=== PATIENT | male | born 1985 | race Hispanic/Latino ===

== ENCOUNTER 2017-11-11 22:29 | Observation (INO) | payer BC, OTHER ==
[2017-11-11 23:33] LABS: Absolute Lymphocytes (CBC) 2.6 K/uL (0.7-4.9); Absolute Monocytes 0.4 K/uL (0.1-1.3); Absolute Neutrophil 4.3 K/uL (1.8-8.0); Basophils % 0.6 % (0-1.3); Eosinophils % 2.2 % (0-4.4); Hematocrit 47.1 % (39.6-49.0); Lymphocytes % 34.2 % (15.3-44.8); MCH 30.5 pg (27.0-35.0); MCV 88.5 fL (80-100); MPV 8.2 fL (7.6-11.3); Monocytes % 5.4 % (3.3-12.3); RBC Red Blood Cell Count 5.33 M/uL (4.33-5.43)
[2017-11-11] MEDS ORDERED: ASPIRIN 81 MG CHEWABLE TABLET ONE (23:33)
[2017-11-11] MEDS ORDERED: NA CHLORIDE 0.9% 500 ML ONE (23:33)
[2017-11-11 23:36] LABS: Protime INR 1.03
[2017-11-11] MEDS ORDERED: NA CHLORIDE 0.9% 1,000 ML ONE (23:36)
[2017-11-11 23:56] LABS: Albumin 4.7 g/dL (3.2-5.5); Bilirubin Direct 0.1 mg/dL (0-0.2); Bilirubin Total 0.8 mg/dL (0.3-1.2); CKMB Creatine Kinase MB 1.2 ng/ml (0.3-4.0)
--- NOTE | 2017-11-12 01:27 | EDPHYS ---
Physician Documentation [facility] Name: Delmar Kathleen Age: 32 yrs Sex: Male : 1985 Arrival Date: 11/11/2017 Time: 22:30 Bed 20 Private MD: Rommel Berry V ED Physician Asher Tuttle HPI: 11/11 23:29 This 32 yrs old Male presents to ER via Ambulatory with complaints of Chest cem Pain, High Blood Pressure. 23:29 The patient or guardian reports chest pain that is located primarily in the substernal ecm area, anterior chest wall. The pain does not radiate. Associated signs and symptoms: Pertinent positives: palpitations. The chest pain is described as sharp. Duration: The patient or guardian reports multiple episodes, that wax and wane. Modifying factors: The symptoms are alleviated by remaining still, rest, the symptoms are aggravated by breathing, cough, deep breath. Severity of pain: At its worst the pain was moderate in the emergency department the pain is unchanged. The patient has not experienced similar symptoms in the past. Historical: - Allergies: 22:56 No Known Allergies; fc - Home Meds: 22:56 levothyroxine 137 mcg tab 1 tab once daily [Active]; omeprazole 40 mg Oral cpDR 1 cap fc as needed [Active]; - PMHx: 22:56 GERD; Hypothyroidism; Sleep Apnea; fc - PSHx: 22:56 None; fc - Immunization history:: Last tetanus immunization: up to date. - Social history:: Smoking status: Patient/guardian denies using tobacco, Patient uses alcohol, only on a social basis. - Ebola Screening: : Patient negative for fever greater than or equal to 101.5 degrees Fahrenheit, and additional compatible Ebola Virus Disease symptoms Patient denies exposure to infectious person Patient denies travel to an Ebola-affected area in the 21 days before illness onset. - Family history:: not pertinent. ROS: 23:29 Constitutional: Negative for fever, chills, and weight loss, Eyes: Negative for injury, cem pain, redness, and discharge, ENT: Negative for injury, pain, and discharge, Neck: Negative for injury, pain, and swelling, Abdomen/GI: Negative for abdominal pain, nausea, vomiting, diarrhea, and constipation, Back: Negative for injury and pain, : Negative for injury, bleeding, discharge, and swelling, MS/Extremity: Negative for injury and deformity, Skin: Negative for injury, rash, and discoloration, Neuro: Negative for headache, weakness, numbness, tingling, and seizure, Psych: Negative for depression, anxiety, suicide ideation, homicidal ideation, and hallucinations, Allergy/Immunology: Negative for hives, rash, and allergies, Endocrine: Negative for neck swelling, polydipsia, polyuria, polyphagia, and marked weight changes, Hematologic/Lymphatic: Negative for swollen nodes, abnormal bleeding, and unusual bruising. 23:29 Cardiovascular: Positive for chest pain. 23:29 Respiratory: Positive for pleurisy, shortness of breath. Exam: 23:29 Constitutional: This is a well developed, well nourished patient who is awake, alert, cem and in no acute distress. Head/Face: Normocephalic, atraumatic. Eyes: Pupils equal round and reactive to light, extra-ocular motions intact. Lids and lashes normal. Conjunctiva and sclera are non-icteric and not injected. Cornea within normal limits. Periorbital areas with no swelling, redness, or edema. ENT: Nares patent. No nasal discharge, no septal abnormalities noted. Tympanic membranes are normal and external auditory canals are clear. Oropharynx with no redness, swelling, or masses, exudates, or evidence of obstruction, uvula midline. Mucous membranes moist. Neck: Trachea midline, no thyromegaly or masses palpated, and no cervical lymphadenopathy. Supple, full range of motion without nuchal rigidity, or vertebral point tenderness. No Meningismus. Chest/axilla: Normal chest wall appearance and motion. Nontender with no deformity. No lesions are appreciated. Cardiovascular: Regular rate and rhythm with a normal S1 and S2. No gallops, murmurs, or rubs. Normal PMI, no JVD. No pulse deficits. Respiratory: Lungs have equal breath sounds bilaterally, clear to auscultation and percussion. No rales, rhonchi or wheezes noted. No increased work of breathing, no retractions or nasal flaring. Abdomen/GI: Soft, non-tender, with normal bowel sounds. No distension or tympany. No guarding or rebound. No evidence of tenderness throughout. Back: No spinal tenderness. No costovertebral tenderness. Full range of motion. Male : Normal genitalia with no discharge or lesions. Skin: Warm, dry with normal turgor. Normal color with no rashes, no lesions, and no evidence of cellulitis. MS/ Extremity: Pulses equal, no cyanosis. Neurovascular intact. Full, normal range of motion. Neuro: Awake and alert, GCS 15, oriented to person, place, time, and situation. Cranial nerves II-XII grossly intact. Motor strength 5/5 in all extremities. Sensory grossly intact. Cerebellar exam normal. Normal gait. Psych: Awake, alert, with orientation to person, place and time. Behavior, mood, and affect are within normal limits. Vital Signs: 22:56 BP 173 / 113 RA Sitting; Pulse 115; Resp 20; Temp 99.6(O); Pulse Ox 100% on R/A; Weight fc 84.82 kg (R); Height 5 ft. 7 in. (170.18 cm) (R); Pain 4/10; 22:58 BP 182 / 106 LA Sitting; Pulse 119; fc 23:52 BP 160 / 98; Pulse 92; Resp 18; Pulse Ox 99% ; ao 11/12 01:59 BP 135 / 89; Pulse 84; Resp 18; Pulse Ox 100% on R/A; Pain 0/10; mg2 11/11 22:56 Body Mass Index 29.29 (84.82 kg, 170.18 cm) fc MDM: 11/11 23:11 Patient medically screened. [facility] 23:33 Data reviewed: vital signs, nurses notes, lab test result(s), EKG, radiologic studies, [facility] CT scan, plain films. 11/11 23:13 Order name: Basic Metabolic Panel; Complete Time: : [facility] 11/11 23:13 Order name: BNP; Complete Time: : [facility] 11/11 23:13 Order name: CBC with Diff; Complete Time: : [facility] 11/11 23:13 Order name: Ckmb; Complete Time: : [facility] 11/11 23:13 Order name: CPK; Complete Time: : [facility] 11/11 23:13 Order name: LFT's; Complete Time: : [facility] 11/11 23:13 Order name: Magnesium; Complete Time: : [facility] 11/11 23:13 Order name: PT-INR; Complete Time: : [facility] 11/11 23:13 Order name: Ptt, Activated; Complete Time: 01:19 [facility] 11/11 23:13 Order name: Troponin (emerg Dept Use Only); Complete Time: 01:19 [facility] 11/11 23:13 Order name: XRAY Chest (1 view) [facility] 11/11 23:28 Order name: CT Chest For PE Angio [facility] 11/11 23:28 Order name: Blood Culture Adult (2) [facility] 11/12 01:33 Order name: TSH 11/11 23:13 Order name: EKG; Complete Time: 23:13 [facility] 11/11 23:13 Order name: Cardiac monitoring; Complete Time: 23:25 [facility] 11/11 23:13 Order name: EKG - Nurse/Tech; Complete Time: 23:25 [facility] 11/11 23:13 Order name: IV Saline Lock; Complete Time: 23:25 [facility] 11/11 23:13 Order name: Labs collected and sent; Complete Time: 23:25 [facility] 11/11 23:13 Order name: O2 Per Protocol; Complete Time: 23:25 [facility] 11/11 23:13 Order name: O2 Sat Monitoring; Complete Time: 23:25 [facility] 11/11 23:13 Order name: Urine Dipstick-Ancillary (obtain specimen); Complete Time: 02:14 [facility] Administered Medications: 23:44 Drug: Aspirin Chewable Tablet 162 mg Route: PO; mg2 11/12 02:12 Follow up: Response: No adverse reaction mg2 11/11 23:44 Drug: NS 0.9% 500 ml Route: IV; Rate: bolus; Site: right antecubital; mg2 06/07 02:12 Follow up: IV Status: Completed infusion mg2 00:05 Drug: NS 0.9% 1000 ml Route: IV; Rate: 125 ml/hr; Site: right antecubital; mg2 02:12 Follow up: IV Status: Completed infusion mg2 02:13 Follow up: IV Status: Completed infusion; IV Intake: 1000ml mg2 01:44 Drug: Potassium Effervescent Tablet 50 mEq Route: PO; mg2 02:13 Follow up: Response: No adverse reaction mg2 01:44 Drug: Lopressor (metoprolol TARTRATE) 50 mg Route: PO; mg2 02:14 Follow up: Response: No adverse reaction mg2 01:44 Drug: Lovenox 1 mg/kg Route: Sub-Q; Site: right lower abdomen; mg2 02:14 Follow up: Response: No adverse reaction mg2 Disposition: 11/12/17 01:26 Hospitalization ordered by Rommel Berry for Observation. Preliminary diagnosis are Chest pain, unspecified, Chest pain on breathing, Hypokalemia, Essential (primary) hypertension. - Bed requested for Telemetry/MedSurg (observation). - Status is Observation. mg2 - Condition is Stable. - Problem is new. - Symptoms have improved. UTI on Admission? No Signatures: Dispatcher [employer] EDMS Kiarra Estevez RN RN mw Anderson, Corey, MD MD cha Chretien, Felicia, RN RN Nirmal Landaverde RN RN mg2 Corrections: (The following items were deleted from the chart) 01:26 01:26 Hospitalization Ordered by Rommel Berry MD for Observation. Preliminary diagnosis cem is Chest pain, unspecified; Chest pain on breathing; Hypokalemia. Bed requested for Telemetry/MedSurg (observation). Status is Observation. Condition is Stable. Problem is new. Symptoms have improved. UTI on Admission? No. cem 01:34 01:26 11/12/2017 01:26 Hospitalization Ordered by Rommel Berry MD for Observation. mw Preliminary diagnosis is Chest pain, unspecified; Chest pain on breathing; Hypokalemia; Essential (primary) hypertension. Bed requested for Telemetry/MedSurg (observation). Status is Observation. Condition is Stable. Problem is new. Symptoms have improved. UTI on Admission? No. cem 02:20 01:34 11/12/2017 01:26 Hospitalization Ordered by Rommel Berry MD for Observation. mg2 Preliminary diagnosis is Chest pain, unspecified; Chest pain on breathing; Hypokalemia; Essential (primary) hypertension. Bed requested for Telemetry/MedSurg (observation). Status is Observation. Condition is Stable. Problem is new. Symptoms have improved. UTI on Admission? No. turner
--- NOTE | 2017-11-12 01:27 | ER ---
Nurse's Notes [facility] Name: Delmar Kathleen Age: 32 yrs Sex: Male : 1985 Arrival Date: 11/11/2017 Time: 22:30 Bed 20 Private MD: Rommel Berry V Diagnosis: Chest pain, unspecified;Chest pain on breathing;Hypokalemia;Essential (primary) hypertension Presentation: 11/11 22:50 Presenting complaint: Patient states: that for the past 2 days he has been having chest fc pain that does not radiate. Pain is worse when he takes a deep breath. Denies any shortness of breath, nausea or vomiting. Transition of care: patient was not received from another setting of care. Onset of symptoms was November 09, 2017. Risk Assessment: Do you want to hurt yourself or someone else? Patient reports no desire to harm self or others. Initial Sepsis Screen: Does the patient meet any 2 criteria? HR > 90 bpm. No. Patient's initial sepsis screen is negative. Does the patient have a suspected source of infection? No. Patient's initial sepsis screen is negative. Care prior to arrival: Medication(s) given: Motrin, 400 mg, at 1730. 22:50 Method Of Arrival: Ambulatory fc 22:50 Acuity: KIMI 3 fc Triage Assessment: 22:56 General: Appears uncomfortable, slender, Behavior is calm, cooperative, appropriate for fc age. Pain: Complains of pain in chest Pain does not radiate. Pain currently is 4 out of 10 on a pain scale. Quality of pain is described as aching, pressure, Pain began 2-3 days ago. Is episodic, Aggravated by increased activity, repositioning, deep breathing. EENT: No deficits noted. Neuro: Level of Consciousness is awake, alert, obeys commands, Oriented to person, place, time, situation. Cardiovascular: Reports chest pain, Denies nausea, shortness of breath, vomiting, Heart tones S1 S2 Capillary refill < 3 seconds Chest pain is described as vague, quality is pressure, is located in chest wall substernal area began 2 days ago episodes are intermittent is aggravated by activity, breathing. Respiratory: No deficits noted. GI: No deficits noted. : No deficits noted. Derm: Skin is pink, warm \T\ dry. Musculoskeletal: Circulation, motion, and sensation intact. Capillary refill < 3 seconds, Range of motion: intact in all extremities. Historical: - Allergies: 22:56 No Known Allergies; fc - Home Meds: 22:56 levothyroxine 137 mcg tab 1 tab once daily [Active]; omeprazole 40 mg Oral cpDR 1 cap fc as needed [Active]; - PMHx: 22:56 GERD; Hypothyroidism; Sleep Apnea; fc - PSHx: 22:56 None; fc - Immunization history:: Last tetanus immunization: up to date. - Social history:: Smoking status: Patient/guardian denies using tobacco, Patient uses alcohol, only on a social basis. - Ebola Screening: : Patient negative for fever greater than or equal to 101.5 degrees Fahrenheit, and additional compatible Ebola Virus Disease symptoms Patient denies exposure to infectious person Patient denies travel to an Ebola-affected area in the 21 days before illness onset. - Family history:: not pertinent. Screenin:26 Abuse screen: Denies threats or abuse. Denies injuries from another. Nutritional mg2 screening: No deficits noted. Tuberculosis screening: No symptoms or risk factors identified. Fall Risk IV access (20 points). Assessment: 23:26 General: Appears in no apparent distress. comfortable, Behavior is calm, cooperative. mg2 General: Behavior is. Pain: Complains of pain in chest Pain does not radiate. Pain Quality of pain is described as heavy, pressure, Pain began gradually, 2-3 days ago. Is intermittent, Alleviated by rest. Neuro: Level of Consciousness is awake, alert, obeys commands, Oriented to person, place, time, situation. Cardiovascular: Capillary refill < 3 seconds Patient's skin is warm and dry. Rhythm is sinus tachycardia Chest pain is described as vague, quality is pressure, is located in anterior chest wall began 2 days ago episodes are intermittent. Respiratory: Airway is patent Trachea midline Respiratory effort is Respiratory pattern is regular, symmetrical. GI: No signs and/or symptoms were reported involving the gastrointestinal system. : No signs and/or symptoms were reported regarding the genitourinary system. EENT: No signs and/or symptoms were reported regarding the EENT system. Derm: Skin is intact, Skin is pink, warm \T\ dry. normal. Musculoskeletal: No signs and/or symptoms reported regarding the musculoskeletal system. 11/12 00:11 Reassessment: patient sent to CT scan. mg2 Vital Signs: 11/11 22:56 BP 173 / 113 RA Sitting; Pulse 115; Resp 20; Temp 99.6(O); Pulse Ox 100% on R/A; Weight fc 84.82 kg (R); Height 5 ft. 7 in. (170.18 cm) (R); Pain 4/10; 22:58 BP 182 / 106 LA Sitting; Pulse 119; fc 23:52 BP 160 / 98; Pulse 92; Resp 18; Pulse Ox 99% ; ao 11/12 01:59 BP 135 / 89; Pulse 84; Resp 18; Pulse Ox 100% on R/A; Pain 0/10; mg2 11/11 22:56 Body Mass Index 29.29 (84.82 kg, 170.18 cm) ED Course: 11/11 22:30 Patient arrived in ED. es 22:30 Rommel Berry MD is Private Physician. es 22:53 Triage completed. fc 22:58 Arm band placed on Patient placed in waiting room, Patient notified of wait time. fc 23:11 Asher Tuttle MD is Attending Physician. cem 23:22 Nirmal Landaverde, KATARZYNA is Primary Nurse. mg2 23:26 Inserted saline lock: 18 gauge in right antecubital area, using aseptic technique. mg2 Blood collected. 23:29 X-ray completed. Portable x-ray completed in exam room. Patient tolerated procedure kw well. 23:31 XRAY Chest (1 view) In Process Unspecified. EDMS 23:53 Patient has correct armband on for positive identification. bus monitor on. Pulse ao ox on. NIBP on. 23:53 Patient maintains SpO2 saturation greater than 95% on room air. ao 11/12 00:[address] via wheelchair. sj 00:24 CT completed. Patient tolerated procedure well. Patient moved back from CT. kw1 00:40 CT Chest For PE Angio In Process Unspecified. EDMS 01:26 Rommel Berry MD is Hospitalizing Provider. cem 02:05 No provider procedures requiring assistance completed. Patient admitted, IV remains in mg2 place. Administered Medications: 11/11 23:44 Drug: Aspirin Chewable Tablet 162 mg Route: PO; mg2 11/12 02:12 Follow up: Response: No adverse reaction mg2 11/11 23:44 Drug: NS 0.9% 500 ml Route: IV; Rate: bolus; Site: right antecubital; mg2 06/07 02:12 Follow up: IV Status: Completed infusion mg2 00:05 Drug: NS 0.9% 1000 ml Route: IV; Rate: 125 ml/hr; Site: right antecubital; mg2 02:12 Follow up: IV Status: Completed infusion mg2 02:13 Follow up: IV Status: Completed infusion; IV Intake: 1000ml mg2 01:44 Drug: Potassium Effervescent Tablet 50 mEq Route: PO; mg2 02:13 Follow up: Response: No adverse reaction mg2 01:44 Drug: Lopressor (metoprolol TARTRATE) 50 mg Route: PO; mg2 02:14 Follow up: Response: No adverse reaction mg2 01:44 Drug: Lovenox 1 mg/kg Route: Sub-Q; Site: right lower abdomen; mg2 02:14 Follow up: Response: No adverse reaction mg2 Intake: 02:13 IV: 1000ml; Total: 1000ml. mg2 Outcome: 01:26 Decision to Hospitalize by Provider. cem 02:06 Admitted to Med/surg accompanied by nurse, via wheelchair, room 204, with chart, Report mg2 called to NUrse Norma 02:06 Condition: stable 02:06 Instructed on the need for admit, Demonstrated understanding of admission 02:20 Patient left the ED. mg2 Signatures: Dispatcher [employer] Asher Gamboa MD MD cha Salyer, Andie Peterson Felicia, RN RN Karena Martin Alex, RN RN ao Wilhelm, Kimberly kw1 Gardose, Michele, RN RN mg2
[2017-11-12] MEDS ORDERED: POTASSIUM 25 MEQ EFFERV TAB ONE (01:34)
[2017-11-12] MEDS ORDERED: ONDANSETRON 4 MG/2 ML VIAL IV PRN (01:34)
[2017-11-12] MEDS ORDERED: ENOXAPARIN 80 MG/0.8 ML SQ ONE (01:34)
[2017-11-12] MEDS ORDERED: MORPHINE 4 MG/ML SYR IV PRN (01:34)
[2017-11-12] MEDS ORDERED: ACETAMINOPHEN 500 MG TAB PO PRN (01:34)
[2017-11-12] MEDS ORDERED: METOPROLOL TAR 50 MG TAB ONE (01:34)
[2017-11-12 02:23] LABS: Thyroid Stimulating Hormone 11.71 uIU/mL (0.34-5.60)
[2017-11-12 02:31] VITALS: BMI 29.7
[2017-11-12 03:07] VITALS: O2SAT 98
[2017-11-12] MEDS ORDERED: METOPROLOL TAR 25 MG TAB PO SCH (06:00)
--- NOTE | 2017-11-12 06:44 | RAD REPORT ---
EXAM DESCRIPTION: CT - Chest For Pe Angio - 11/12/2017 5:58 am CLINICAL HISTORY: Chest pain, shortness of breath. A preliminary written report was provided at the time of the study, and the report was reviewed prio r to final dictation. COMPARISON: Chest films same date TECHNIQUE: Dynamically enhanced 3 mm thick images of the chest were obtained during administration o f approximately 150mL Isovue 370 IV contrast. Coronal and oblique reconstruction images were generate d and reviewed. Exam utilizes a protocol to evaluate the pulmonary arterial tree. All CT scans are performed using dose optimization technique as appropriate and may include automated exposure control or mA/KV adjustment according to patient size. FINDINGS: No pulmonary emboli are identified. The aorta as imaged shows no acute or suspicious finding. No pericardial thickening or effusion. No infiltrate or mass in the lung parenchyma. No pleural effusion or pleural thickening. No mediastinal or hilar suspicious masses. No chest wall masses or abnormal axillary lymphadenopathy. IMPRESSION: No pulmonary emboli identified. No other significant or suspicious findings.
--- NOTE | 2017-11-12 08:31 | RAD REPORT ---
EXAM DESCRIPTION: RAD - Chest Single View - 11/11/2017 11:31 pm CLINICAL HISTORY: The non radiating chest pain COMPARISON: None. TECHNIQUE: AP portable chest image was obtained 2327 hours . FINDINGS: Lungs are clear. Heart and vasculature are normal. No measurable pleural effusion and no p neumothorax. No gross bony abnormality seen. No acute aortic findings suspected. IMPRESSION: No acute cardiopulmonary process.
[2017-11-12] MEDS ORDERED: ASPIRIN EC 81 MG TAB PO SCH (09:00)
[2017-11-12] MEDS ORDERED: LEVOTHYROXINE SOD 0.075 MG TAB PO SCH (09:00)
[2017-11-12] MEDS ORDERED: FAMOTIDINE 20 MG/2 ML VIAL IV SCH (09:00)
[2017-11-12] MEDS ORDERED: ENOXAPARIN 80 MG/0.8 ML SQ SCH (09:00)
[2017-11-12] MEDS ORDERED: POTASSIUM 25 MEQ EFFERV TAB PO SCH (09:00)
[2017-11-12 09:40] VITALS: BP 110/68; TEMP 96
[2017-11-12 11:19] LABS: Bicarbonate 27 mEq/L (21-31); Glucose Level 102 mg/dL (65-120); Potassium 3.5 mEq/L (3.6-5.0); Sodium Level 137 mEq/L (135-145)
[2017-11-12 11:27] LABS: BUN Blood Urea Nitrogen 9 mg/dL (6-20)
[2017-11-12 11:32] LABS: C-Reactive Protein < 5.0 mg/L (<10.0)
--- NOTE | 2017-11-12 12:30 | ECHO ---
HEIGHT: 5 ft 7 in WEIGHT: 190 lb 0 oz DATE OF STUDY: 11/12/[address]: Asher Tuttle MD 2-DIMENSIONAL: YES M.MODE: YES DOPPLER: YES COLOR FLOW: YES TDS: PORTABLE: DEFINITY: BUBBLE STUDY: DIAGNOSIS: CHEST PAIN CARDIAC HISTORY: CATHERIZATION: NO SURGERY: NO PROSTHETIC VALVE: NO PACEMAKER: NO MEASUREMENTS (cm) DIASTOLIC (NORMALS) SYSTOLIC (NORMALS) IVSd 1.2 (0.6-1.2) LA Diam 3.7 (1.9-4.0) LVEF 60% LVIDd 4.3 (3.5-5.7) LVIDs 3.0 (2.0-3.5) %FS 32% LVPWd 1.2 (0.6-1.2) Ao Diam 3.0 (2.0-3.7) 2 DIMENSIONAL ASSESSMENT: RIGHT ATRIUM: NORMAL LEFT ATRIUM: NORMAL RIGHT VENTRICLE: NORMAL LEFT VENTRICLE: NORMAL TRICUSPID VALVE: NORMAL MITRAL VALVE: NORMAL PULMONIC VALVE: NORMAL AORTIC VALVE: NORMAL PERICARDIAL EFFUSION: NONE AORTIC ROOT: NORMAL LEFT VENTRICULAR WALL MOTION: DOPPLER/COLOR FLOW: NORMAL COMMENTS: NORMAL 2-DIMENSIONAL ECHOCARDIOGRAM WITH DOPPLER. NO WALL MOTION ABNORMALITY. NO EFFUSION. TECHNOLOGIST: DARLENE HAYES
--- NOTE | 2017-11-12 13:03 | P.SSS ---
Patient History Date of Service: 11/12/17 Reason for admission: CHEST PAIN History of Present Illness: MR. SARABIA IS 32 YEARS OLD GM WITH ANXIETY BY HISTORY, COMES WITH CHEST PAIN THAT IS MORE ON BREATHING AND COUGHING. HE HAS NO RADIATION OF PAIN. HE DOES NOT SMOKE. THIS PAIN IS CONSTANT BUT BETTER NOW. Allergies No Known Allergies Allergy (Verified 11/12/17 02:31) Home Medications: Bisoprolol Fumarate/Hctz [Bisoprolol-Hctz 2.5-6.25 mg Tb] 1 each PO DAILY #30 tablet 11/12/17 Levothyroxine [Synthroid*] 0.137 mg PO DAILY 11/12/17 Omeprazole 40 mg PO DAILY PRN 11/12/17 - Past Medical/Surgical History Has patient received pneumonia vaccine in the past: Yes Diabetic: No -: HTN -: Hypothyroidism -: Stomach Ulcers -: Sleep Apnea - Social History Smoking Status: Never smoker Alcohol use: Yes CD- Drugs: No Caffeine use: Yes Place of Residence: Home Review of Systems 10-point ROS is otherwise unremarkable Physical Examination - Vital Signs Temperature: 96 F Blood Pressure: 110/68 Pulse: 60 Respirations: 18 Pulse Ox (%): 98 - Physical Exam General: Alert, In no apparent distress HEENT: Atraumatic, PERRLA, Mucous membr. moist/pink, EOMI, Sclerae nonicteric Neck: Supple, 2+ carotid pulse no bruit, No LAD, Without JVD or thyroid abnormality Respiratory: Clear to auscultation bilaterally, Normal air movement Cardiovascular: Regular rate/rhythm, Normal S1 S2 Gastrointestinal: Normal bowel sounds, No tenderness Musculoskeletal: No tenderness Integumentary: No rashes Neurological: Normal gait, Normal speech, Normal strength at 5/5 x4 extr, Normal tone, Normal affect Lymphatics: No axilla or inguinal lymphadenopathy - Studies Laboratory Data (last 24 hrs) 11/11/17 23:25: PT 12.1, INR 1.03, APTT 26.6 11/11/17 23:25: WBC 7.5, Hgb 16.3, Hct 47.1, Plt Count 324 11/11/17 23:25: B-Natriuretic Peptide < 10 11/11/17 23:25: Sodium 139, Potassium 3.0 L, BUN 14, Creatinine 1.07, Glucose 135 H, Magnesium 2.0, Total Bilirubin 0.8, AST 22, ALT 28, Alkaline Phosphatase 58 - Disposition Disposition: ROUTINE DISCHARGE Condition: FAIR Patient Discharge Instructions: WAIT TO SEE DENSITOMETER READER IF YOU CAN. I DON'T SUSPECT CARDIAC DISEASE BUT YOU HAVE ABNORMAL EKG AND ECHOCARDIOGRAM IS NORMAL. Diet: AHA
[2017-11-12] MEDS ORDERED: FAMOTIDINE 20 MG TAB PO SCH (21:00)
--- NOTE | 2017-11-13 07:22 | EKG ---
Test Date: 2017-11-12 Test Time: 12:51:56 Building Wrecker: AMAN MEASUREMENT RESULTS: Intervals: Rate: 69 MA: 146 QRSD: 98 QT: 322 QTc: 345 [place]: P: 35 MA: 146 QRS: 27 T: 34 INTERPRETIVE STATEMENTS: Normal sinus rhythm Nonspecific T wave abnormality Abnormal ECG Compared to ECG 11/11/2017 23:14:50 Sinus tachycardia no longer present Possible ischemia no longer present Prolonged QT interval no longer present T-wave abnormality still present Electronically Signed On 11-13-17 07:19:51 CDT by Franco Barrow
--- NOTE | 2017-11-13 07:24 | EKG ---
Test Date: 2017-11-11 Test Time: 23:14:50 Corrections Lieutenant: ANGIE MEASUREMENT RESULTS: Intervals: Rate: 103 DC: 142 QRSD: 96 QT: 398 QTc: 521 [place]: P: 35 DC: 142 QRS: 33 T: 2 INTERPRETIVE STATEMENTS: Sinus tachycardia T wave abnormality, consider anterolateral ischemia Prolonged QT Abnormal ECG Compared to ECG 01/18/2013 22:42:00 Prolonged QT interval now present Sinus rhythm no longer present T-wave abnormality still present Possible ischemia still present Electronically Signed On 11-13-17 07:20:11 CDT by Franco Barrow
== END 2017-11-12 14:55 | disposition home or self-care (01) ==
LOC: ER 22:29 → ERHOLD 11-12 01:26 → 2ND 11-12 01:49
PROVIDERS: ADMIT Internal Medicine; ATTEND Internal Medicine
DX: R07.9 Chest pain, unspecified (principal); I10 Essential (primary) hypertension; E03.9 Hypothyroidism, unspecified
CPT/HCPCS: 36415; 71045; 71275; 80048; 80076; 82550; 82553; 83735; 83880; 84439; 84443; 84484; 85025; 85610; 85652; 85730; 86140; 86141; 87040; 93005; 93306; 96360; 96361; 96372; 99285; G0378; J1650; J7030; Q9967

== ENCOUNTER 2024-10-22 08:29 | Emergency (ER) | payer BC ==
--- OUTSIDE RECORDS SUMMARY | 2024-10-22 08:32 | XMS REPORT | Continuity of Care Document ---
Author Name Unknown Address [address] [facility] [address] [place] [address] [facility] [place] Address [address] [facility] [address] [place] [address] Care Team Providers Care Research Chief Engineer Name Role Phone Pcp, Patient Does Not Have A Primary Care Physic danny Raul Chua Attending Clinician Unavailable Wendy Hussein Attending Clinician Unavailable Priscilla Parada PA-C Attending Clinician [phone] Unknown, Attending Attending Clinician Unavailab PRISCILLA Morales Attending Clinician Unavailable Payers Payer Name Policy Type Policy Number Effective Date Expirati on Date Source Allergies, Adverse Reactions, Alerts Allergy Name Allergy Type Status Severity Reaction(s) Onset Date Inactive Date Treating Clinician Comments Source NO KNOWN ALLERGIE S Drug Class Active [facility] Social History Social Habit Start Date Stop Date Quantity Comments Source Sexual orientation U [facility] Sex Assigned At 1985 00:00:00 1985 00:00:00 [facility] Smoking Status Start Date Stop Date Source Tobacco smoking consumption unknown [facility] Medications Ordered Medication Name Filled Medication Name Start Date Stop Date Current Medication? Ordering Clinician Indication Dosage Frequency Signature (SIG) Comments Components Source levothyroxi ne 150 mcg tablet 07-21 09:26: 14 Yes TAKE 1 TABLET BY MOUTH EVERY DAY IN THE MORNING ON EMPTY STOMACH FOR 90 DAYS [facility] Vital Signs Vital Name Observation Time Observation Value Comments S ourmalinda Systolic blood pressure 2023-07-21 15:25:00 122 mm[Hg] [facility] Diastolic blood pressure 2023-07-21 15:25:00 77 mm[Hg] [facility] Heart rate 2023-07-21 15:25:00 87 /min [facility] Body temperature 2023-07-21 15:25:00 36.78 Denise [facility] Respiratory rate 2023-07-21 15:25:00 18 /min [facility] Body height 2023-07-21 15:25:00 170.2 cm [facility] Body weight 2023-07-21 15:25:00 95.074 kg [facility] BMI 2023-07-21 15:25:00 32.83 kg/m2 [facility] Oxygen saturation in Arterial blood by Pulse oximetry 2023-07-21 15:25:00 98 /min [facility] Procedures Procedure Date / Time Performed Performing Clinicia n Source POCT SARS-COV-2 ANTIGEN (BINAX NOW) 2023-07-21 15:37:00 Priscilla Parada [facility] POCT MOLECULAR FLU 2023-07-21 15:31:00 Unknown, Attend ing [facility] Encounters Start Date/Time End Date/Time Encounter Type Admission Type Attending Clinicians Care Facility Care Department Encounter ID Source 2024-04-12 13:37:00 [facility] [id number] 2023-12-30 10:39:00 [facility] [id number] [facility] 2023-09-04 14:06:00 [facility] [id number] [facility] 2023-06-11 11:13:01 [facility] [id number] [facility] 2023-04-27 14:32:01 Outpatient Wendy Hussein [facility] [id number] [facility] 2023-07-21 09:00:00 2023-07-21 09:20:00 Urgent Care RamirezcarmenPriscilla dixon Unknown, Attending [facility] [id number] [facility] 2023-07-21 09:00:00 2023-07-21 09:00:00 Outpatient R TINO PRISCILLA [facility] [id number] [facility] Results Test Description Test Time Test Comments Results Result Co mments Source [facility]2 [facility]TIGEN (BINAX NOW)2023-07-21 15:38:00* Test Item Value Reference Range Interpretation Comme nts POCT SARS-COV-2 ANTIGEN (test code = 74209-8) Positive Not Detected A On board controls acceptable with C Line (test code = 3574) Yes LIZZIE (test code = LIZZIE) accurate developme nt and interpretation of all internal controls Lab Interpretation (test code = 29452-6) Abnormal [facility]
[2024-10-22] MEDS ORDERED: LIDOCAINE 1% MPF 5 ML VIAL ONE (09:01)
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
[2024-10-22 10:32] VITALS: BP 142/95; TEMP 97.9; O2SAT 100
== END 2024-10-22 09:54 | disposition home or self-care (01) ==
LOC: ER 08:29
DX: S01.81XA Laceration without foreign body of other part of head, initial encounter (principal); W21.07XA Struck by softball, initial encounter
CPT/HCPCS: 99283; 12052; J2003